=== PATIENT | male | born 1955 | race Caucasian/White ===

== ENCOUNTER → 2018-01-21 | Emergency (ER) | payer OTHER ==
[~2018-01-21] VITALS: Ht 162.6 cm; Wt 88.5 kg
[~2018-01-21] MED LIST: CLONAZEPAM1 MG; TRAMADOL HCL-AP1 TAB PO
== END | disposition designated cancer center or children's hospital (05) ==
LOC: ER 11:19
DX: S02.2XXA Fracture of nasal bones, initial encounter for closed fracture (principal); S00.11XA Contusion of right eyelid and periocular area, initial encounter; L03.211 Cellulitis of face; R60.0 Localized edema; W22.8XXA Striking against or struck by other objects, initial encounter; Y93.89 Activity, other specified; Y92.89 Other specified places as the place of occurrence of the external cause; Y99.8 Other external cause status

== ENCOUNTER 2022-04-30 14:49 | Outpatient (CLI) | payer OTHER | END 2022-04-30 14:52 | disposition home or self-care (01) | LOC: SONOGRAMA 14:49 | PROVIDERS: ATTEND Pathology Anatomic Pathology & Clinical Pathology | DX: D17.79 Benign lipomatous neoplasm of other sites (principal); R11.0 Nausea ==